=== PATIENT | female | born 1990 | race Caucasian/White ===

== ENCOUNTER 2018-02-26 20:19 | Inpatient (IN) | payer OTHER ==
[2018-02-26] MEDS ORDERED: CARBOPROST 250 MCG INJ IM (21:00)
[2018-02-26] MEDS ORDERED: OXYTOCIN 30 UNITS/LR 500 ML IV (21:00)
[2018-02-26] MEDS ORDERED: MISOPROSTOL 200 MCG TAB PR (21:00)
[2018-02-26] MEDS ORDERED: LIDOCAINE 1% (MPF) 30 ML INJ INJ (21:00)
[2018-02-26] MEDS ORDERED: METHYLERGONOVINE 0.2 MG INJ IM (21:00)
[2018-02-26] MEDS ORDERED: BUTORPHANOL 2 MG INJ IV (21:00)
[2018-02-26 21:16] LABS: ADD MAN DIFF? NO
[2018-02-26 21:18] LABS: BASOPHIL # 0.1 10^3/ul (0.0-0.1); BASOPHILS % 0.6 % (0.0-2.0); EOSINOPHILS # 0.2 10^3/ul (0.0-0.5); EOSINOPHILS % 1.6 % (0.0-7.0); HEMATOCRIT 34.9 % (37.0-47.0); LYMPHOCYTES # 1.9 10^3/ul (0.8-2.9); LYMPHOCYTES % 16.5 % (15.0-51.0); MEAN CORPUSCULAR HEMOGLOBIN 25.1 pg (29.0-33.0); MEAN CORPUSCULAR HGB CONC 31.5 g/dl (32.0-37.0); MEAN CORPUSCULAR VOLUME 79.7 fl (82.0-101.0); MEAN PLATELET VOLUME 11.4 fl (7.4-10.4); MONOCYTE # 0.8 10^3/ul (0.3-0.9); MONOCYTES % 7.4 % (0.0-11.0); NEUTROPHIL # 8.2 10^3/ul (1.6-7.5); NEUTROPHILS % 72.7 % (39.0-77.0); PLATELET COUNT 304 10^3/UL (140-415); RED BLOOD COUNT 4.38 10^6/ul (4.20-5.40); RED CELL DISTRIBUTION WIDTH 14.4 % (11.5-14.5)
[2018-02-26 21:18] LABS: WHITE BLOOD COUNT 11.3 10^3/ul (4.8-10.8)
[2018-02-26] MEDS: LACTATED RINGER'S 1,000 ML IV (21:26)
[2018-02-26 21:38] LABS: INR 0.84; PROTIME 11.6 Sec (11.9-14.9); PT RATIO 0.9
[2018-02-27] MEDS: MISOPROSTOL 25 MCG CAPSULE PO (03:25)
[2018-02-27 04:32] LABS: AMPHETAMINE/METHAMPHETAMINE Negative (NEGATIVE); BARBITURATES Negative (NEGATIVE); BENZODIAZEPINES Negative (NEGATIVE); CANNABINOIDS Negative (NEGATIVE); COCAINE Negative (NEGATIVE); OPIATES Negative (NEGATIVE)
[2018-02-27] MEDS: LACTATED RINGER'S 1,000 ML IV ×3 (04:41→12:12)
[2018-02-27] MEDS ORDERED: FENTAnyl 2MCG/ML-ROPIV 0.2% 100 ML (08:44)
[2018-02-27] MEDS ORDERED: DIPHENHYDRAMINE 50 MG INJ IV ×2 (09:30→13:30)
[2018-02-27] MEDS ORDERED: NALOXONE (0.4 MG/ML) INJ IV (09:30)
[2018-02-27] MEDS ORDERED: FENTAnyl 2MCG/ML-ROPIV 0.2% 100 ML BAG EPI (09:30)
[2018-02-27] MEDS ORDERED: ONDANSETRON 4 MG INJ IV ×2 (09:30→13:30)
[2018-02-27] MEDS: OXYTOCIN 30 UNITS/LR 500 ML IV ×2 (13:07→13:30)
[2018-02-27] MEDS ORDERED: LACTATED RINGER'S 1,000 ML IV* (13:28)
[2018-02-27] MEDS ORDERED: ONDANSETRON 4 MG TAB PO (13:30)
[2018-02-27] MEDS ORDERED: NA PHOSPHATE/BIPHOS 133 ML ENEMA PR (13:30)
[2018-02-27] MEDS ORDERED: MAGNESIUM HYDROXIDE 30ML CUP PO (13:30)
[2018-02-27] MEDS ORDERED: MISOPROSTOL 200 MCG TAB PR (13:30)
[2018-02-27] MEDS ORDERED: DIBUCAINE 1% 30 GM OINT PR (13:30)
[2018-02-27] MEDS ORDERED: CARBOPROST 250 MCG INJ IM (13:30)
[2018-02-27] MEDS ORDERED: OXYTOCIN 30 UNITS/LR 500 ML IV (13:30)
[2018-02-27] MEDS ORDERED: SENNA/DOCUSATE NA (8.6MG/50MG) TAB PO (13:30)
[2018-02-27] MEDS ORDERED: HYDROCODONE/APAP (5/325) TAB PO ×2 (13:30)
[2018-02-27] MEDS ORDERED: DIPHENHYDRAMINE 25 MG CAP PO (13:30)
[2018-02-27 14:59] LABS: RAPID PLASMA REAGIN NONREACTIVE (NR)
[2018-02-27] MEDS: BENZOCAINE 20% 56 ML SPRAY TOP (16:17)
[2018-02-27] MEDS: LANOLIN 7 GM TUBE TOP (16:17)
[2018-02-27] MEDS: WITCH HAZEL/GLYCERIN PAD PR (16:18)
[2018-02-27] MEDS: IBUPROFEN 600 MG TAB PO ×2 (18:03→23:38)
[2018-02-27] MEDS: SENNA/DOCUSATE NA (8.6MG/50MG) TAB PO (21:07)
[2018-02-28] MEDS: GUAIFENESIN 20 MG/ML 5ML CUP PO ×2 (00:20→04:19)
[2018-02-28] MEDS: IBUPROFEN 600 MG TAB PO ×3 (05:33→17:57)
[2018-02-28 08:32] LABS: ADD MAN DIFF? NO
[2018-02-28 08:38] LABS: WHITE BLOOD COUNT 10.6 10^3/ul (4.8-10.8)
[2018-02-28 08:38] LABS: BASOPHIL # 0.1 10^3/ul (0.0-0.1); BASOPHILS % 0.7 % (0.0-2.0); EOSINOPHILS # 0.2 10^3/ul (0.0-0.5); EOSINOPHILS % 1.6 % (0.0-7.0); HEMOGLOBIN 10.5 g/dl (12.0-16.0); LYMPHOCYTES # 1.4 10^3/ul (0.8-2.9); LYMPHOCYTES % 13.5 % (15.0-51.0); MEAN CORPUSCULAR HEMOGLOBIN 25.5 pg (29.0-33.0); MEAN CORPUSCULAR HGB CONC 31.8 g/dl (32.0-37.0); MEAN CORPUSCULAR VOLUME 80.1 fl (82.0-101.0); MEAN PLATELET VOLUME 11.6 fl (7.4-10.4); MONOCYTE # 1.1 10^3/ul (0.3-0.9); MONOCYTES % 10.3 % (0.0-11.0); NEUTROPHIL # 7.7 10^3/ul (1.6-7.5); NEUTROPHILS % 72.8 % (39.0-77.0); PLATELET COUNT 262 10^3/UL (140-415); RED BLOOD COUNT 4.12 10^6/ul (4.20-5.40); RED CELL DISTRIBUTION WIDTH 14.7 % (11.5-14.5)
[2018-02-28] MEDS: SENNA/DOCUSATE NA (8.6MG/50MG) TAB PO ×2 (09:15→21:45)
[2018-02-28] MEDS: GUAIFENESIN/CODEINE 5ML CUP PO (21:45)
[2018-02-28] MEDS: PSEUDOEPHEDRINE 30 MG TAB PO (21:46)
[2018-02-28] MEDS ORDERED: VITAMIN A & D 5 GM OINT PACKET TOP (22:09)
[2018-03-01] MEDS: GUAIFENESIN/CODEINE 5ML CUP PO (02:07)
[2018-03-01] MEDS: PSEUDOEPHEDRINE 30 MG TAB PO ×2 (02:07→06:43)
[2018-03-01] MEDS: IBUPROFEN 600 MG TAB PO ×3 (06:00→11:33)
[2018-03-01] MEDS: GUAIFENESIN 20 MG/ML 5ML CUP PO ×2 (06:42→11:34)
[2018-03-01] MEDS: SENNA/DOCUSATE NA (8.6MG/50MG) TAB PO (08:38)
[2018-03-01] MEDS: DIPHTH/TET/ACEL PERTUSS (ADULT) 0.5 ML VIAL IM* (08:39)
[2018-03-01] MEDS: MEASLES,MUMPS,RUBELLA VACCINE INJ SC* (08:40)
[2018-03-01] MEDS: VARICELLA VACCINE LIVE/PF 1,350 UNIT/0.5 ML ML SC* (08:40)
== END 2018-03-01 17:00 | disposition home or self-care (01) | DRG 775 ==
LOC: L-D 20:19 → PP1 02-27 14:50
PROVIDERS: Specialist
PROC: 10E0XZZ Delivery of Products of Conception, External Approach (ICD-10-PCS; principal; 2018-02-27)
PROC: 3E033VJ Introduction of Other Hormone into Peripheral Vein, Percutaneous Approach (ICD-10-PCS; 2018-02-27)
DX: O48.0 Post-term pregnancy (principal); Z3A.40 40 weeks gestation of pregnancy; O69.81X0 Labor and delivery complicated by cord around neck, without compression, not applicable or unspecified; Z37.0 Single live birth
CPT/HCPCS: 62319; 76815; 76818; 80307; 85025; 85610; 85730; 86592; 86850; 86900; 86901; 99464